=== PATIENT | female | born 1930 | race Two or more races ===

== ENCOUNTER 2018-08-06 09:57 | Inpatient (IN) | payer OTHER ==
[~2018-08-06] VITALS: Ht 149.9 cm; Wt 43.5 kg
[~2018-08-06 09:57] MED LIST: ADULT ASPIRIN81 MG; ALPRAZOLAM ER0.5 MG; AMLODIPINE BESYL5 MG; BISA-LAX5 MG; FOLIC ACID1 MG; IOPHEN DM-100 MG/5 M; KEPPRA500 MG PO; LEVETIRACETAM250 MG; NAMENDA10 MG; RAZADYNE12 MG
== END 2018-08-08 04:00 | disposition expired | DRG 871 ==
LOC: ER 09:57 → ICU-2 14:59
PROC: 4A033R1 Measurement of Arterial Saturation, Peripheral, Percutaneous Approach (ICD-10-PCS; principal; 2018-08-06)
DX: A41.59 Other Gram-negative sepsis (principal); R65.21 Severe sepsis with septic shock; I21.4 Non-ST elevation (NSTEMI) myocardial infarction; N39.0 Urinary tract infection, site not specified; G40.89 Other seizures; G30.8 Other Alzheimer's disease; F02.80 Dementia in other diseases classified elsewhere, unspecified severity, without behavioral disturbance, psychotic disturbance, mood disturbance, and anxiety; Z66 Do not resuscitate; Z16.12 Extended spectrum beta lactamase (ESBL) resistance; Z74.01 Bed confinement status; I10 Essential (primary) hypertension